=== PATIENT | male | born 1940 ===

== ENCOUNTER 2017-05-18 18:48 | Emergency (ER) | payer MEDICARE, MEDICAID ==
[2017-05-18 18:49] VITALS: BMI 23.3
[2017-05-18 18:53] VITALS: O2SAT 98
--- NOTE | 2017-05-18 19:41 | C.PDOC ---
History Of Present Illness 76 year old male, with a history of HTN and chronic renal insufficiency, presents to the ED with complaints of intermittent chest pain for four days and back pain for two weeks. 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 Patient had an appointment for today with assistant pastry chef Dr. Chaidez but came to the ED for evaluation instead. He began taking Tramadol for pain with relief initially for first three days and then stopped proving relief. Patient denies shortness of breath, weakness, or numbness. OLD RECS: HO CHRONIC RENAL INSUFF Time Seen by Provider: 05/18/17 19:17 Chief Complaint (Nursing): Back Pain History Per: Family History/Exam Limitations: no limitations Onset/Duration Of Symptoms: Days (intermittent chest pain for four days ), Persistent (back pain for two weeks ) Current Symptoms Are (Timing): Still Present Reports Recently: Treated By A Physician Recent travel outside of the [place]: No Additional History Per: Patient Past Medical History Reviewed: Historical Data, Nursing Documentation, Vital Signs Vital Signs: Last Vital Signs Temp 98.4 F 05/18/17 18:51 Pulse 60 05/18/17 18:51 Resp 20 05/18/17 18:51 BP 143/90 05/18/17 18:51 Pulse Ox 98 05/18/17 20:39 - Medical History PMH: Diabetes, HTN, Kidney Stones, Pancreatitis, Chronic Kidney Disease Family History: States: Unknown Family Hx - Social History Hx Tobacco Use: No Hx Alcohol Use: No Hx Substance Use: No Review Of Systems Constitutional: Positive for: Fever (subjective fever). Negative for: Chills Cardiovascular: Positive for: Chest Pain. Negative for: Palpitations Respiratory: Negative for: Cough, Shortness of Breath Gastrointestinal: Negative for: Nausea, Vomiting, Abdominal Pain, Diarrhea Musculoskeletal: Positive for: Back Pain Physical Exam - Physical Exam Appears: Non-toxic, No Acute Distress Skin: Warm, Dry Head: Atraumatic Eye(s): bilateral: Normal Inspection Oral Mucosa: Moist Neck: Supple Chest: Symmetrical, No Deformity Cardiovascular: Rhythm Regular, No Murmur Respiratory: Normal Breath Sounds, No Rales, No Rhonchi, No Wheezing Gastrointestinal/Abdominal: Soft, No Tenderness, No Distention, No Guarding, No Rebound Back: No CVA Tenderness, Paraspinal Tenderness (Bilateral paravertebral tenderness ), Other (Reproducible pain with flexion of the lower back ) Extremity: Normal ROM, No Tenderness, Capillary Refill (good capillary refill, less than two seconds ), No Swelling Neurological/Psych: Oriented x3, Normal Speech, Normal Cognition, Normal Motor, Normal Sensation, Other (Neuro grossly intact ) ED Course And Treatment - Laboratory Results Result Diagrams: 05/18/17 20:16 05/18/17 20:16 ECG: Interpreted By Me ECG Rhythm: Sinus Bradycardia ECG Interpretation: Normal Rate From EC O2 Sat by Pulse Oximetry: 98 (room air ) Pulse Ox Interpretation: Normal - Radiology CXR: Interpreted by Me, Viewed By Me CXR Interpretation: Yes: No Acute Disease, Other (Unchanged from 02/2016) Nexus Criteria: Negative - Other Rad Lumbar Spine X-Ray X-Ray: Interpreted by Me, Viewed By Me Interpretation: DJD, no fracture, no lytic leisons. Progress Note: Blood work, UA, CXR, and lumbar spine X-Ray were ordered. Patient was given Tylenol, Toradol, and Percocet. Progress - Re-Evaluation Re-evaluation Note: 05/18/17 20:38 FEELS BETTER. VSS. APPEARS COMFORTABLE NAD. PENDING LABS. 05/18/17 21:34 ASYMPT. VSS. AMBUL WO DIFF. FEELS BETTER WISHES DC HOME - Data Reviewed Data Reviewed: Lab, Diagnostic imaging, EKG, Old records Disposition Counseled Patient/Family Regarding: Studies Performed, Diagnosis, Need For Followup, Rx Given - Disposition Referrals: YOUR,PMD [Other] Disposition: HOME/ ROUTINE Disposition Time: 21:34 Condition: IMPROVED Prescriptions: Acetaminophen [Tylenol 325mg tab] 650 mg PO Q6 #30 tab Cyclobenzaprine [Flexeril] 5 mg PO TID #15 tab Ibuprofen [Motrin] 600 mg PO Q6 #30 tab Instructions: Acute Low Back Pain (ED), Chest Pain (ED) Forms: [facility] (Maltese) - Clinical Impression Clinical Impression: Low back pain, Chest pain - Scribe Statement The provider has reviewed the documentation as recorded by the Scribe Patience Walton All medical record entries made by the Scribe were at my direction and personally dictated by me. I have reviewed the chart and agree that the record accurately reflects my personal performance of the history, physical exam, medical decision making, and the department course for this patient. I have also personally directed, reviewed, and agree with the discharge instructions and disposition.
[2017-05-18] MEDS ORDERED: Oxycodone/Acetaminophen 5/325 mg Tab PO STA (19:42)
[2017-05-18] MEDS ORDERED: Oxycodone/Acetaminophen 5/325 mg Tab ONE (19:58)
[2017-05-18 20:20] LABS: BASO # 0.1 K/uL (0.0-0.2); BASO % 0.7 % (0.0-2.0); EOS # 0.1 K/uL (0.0-0.7); EOS % 1.4 % (0.0-4.0); HEMATOCRIT 37.4 % (35.0-51.0); LYMPH # 3.5 K/uL (1.0-4.3); LYMPH % 36.8 % (20.0-40.0); MEAN CELL VOLUME 98.7 fL (80.0-94.0); MEAN CORPUSCULAR HEMOGLOBIN 32.8 pg (27.0-31.0); MEAN CORPUSCULAR HGB CONC 33.3 g/dL (33.0-37.0); MEAN PLATELET VOLUME 8.5 fL (7.2-11.7); MONO # 1.2 K/uL (0.0-0.8); MONO % 12.7 % (0.0-10.0); NRBC % 0.1 % (0.0-2.0); RED CELL DISTRIBUTION WIDTH 14.7 % (11.5-14.5); WHITE BLOOD COUNT 9.6 K/uL (4.8-10.8)
[2017-05-18 20:29] LABS: POTASSIUM 3.8 mmol/L (3.6-5.2)
[2017-05-18] MEDS ORDERED: Sodium Chloride 0.9% 500 ML IV ONE (20:30)
[2017-05-18 20:33] LABS: CALCIUM 8.8 mg/dl (8.6-10.4)
[2017-05-18 20:45] LABS: TROPONIN I 0.041 ng/mL (0.00-0.120)
[2017-05-18 21:14] LABS: RBC URINE < 1 /hpf (0-3); TRANSITIONAL EPITHIAL < 1 /hpf (0-3); URINE BACTERIA RARE (<OCC); URINE BILIRUBIN NEGATIVE (NEGATIVE); URINE BLOOD NEGATIVE (NEGATIVE); URINE COLOR Yellow (YELLOW); URINE GLUCOSE (UA) NORMAL (Normal); URINE KETONE NEGATIVE (NEGATIVE); URINE LEUKOCYTE ESTERASE NEG Leu/uL (Negative); URINE PROTEIN 2+ mg/dL (NEGATIVE); URINE UROBILINOGEN NORMAL mg/dL (0.2-1.0); WBC URINE 4 /hpf (0-5)
[2017-05-18 22:01] VITALS: BP 121/77; PULSE 68; RESP 18; TEMP 98.2
--- NOTE | 2017-05-19 09:32 | RAD ---
HISTORY: chest pain COMPARISON: Comparison is made to the previous study dated 03/17/2016 TECHNIQUE: Chest PA and lateral FINDINGS: LUNGS: No significant interval change in the lungs noted since the previous exam. Small opacity at the peripheral right mid lung is again noted. Biapical pleural thickening or lung scarring are also again seen. PLEURA: No significant pleural effusion identified. No pneumothorax apparent. CARDIOVASCULAR: Normal. OSSEOUS STRUCTURES: No significant abnormalities. VISUALIZED UPPER ABDOMEN: Normal. OTHER FINDINGS: None. IMPRESSION: No significant interval change since the previous exam.
--- NOTE | 2017-05-19 09:37 | RAD ---
PROCEDURE: Radiographs of the Lumbar Spine. HISTORY: LOWER BACK PAIN COMPARISON: No prior. FINDINGS: BONES: There is mild decreased height of T12 vertebral body. Advanced endplate degenerative changes. Large anterior and posterior osteophyte lipping are noted DISC SPACES: There are multilevel moderate to severe disc space narrowing noted more prominent at L1-L2, L2-L3 and L5-S1 OTHER FINDINGS: None. IMPRESSION: Possible mild decreased height of T12. Advanced degenerative changes at the lumbar spine as described above.
--- NOTE | 2017-05-20 08:00 | CARD ---
APPROVED REPORT EKG Measurement Heart [id number] <Conclusion> Sinus bradycardia with sinus arrhythmia Otherwise normal ECG
== END 2017-05-18 22:00 | disposition home or self-care (01) ==
LOC: C.ER 18:48
DX: R07.9 Chest pain, unspecified (principal); M54.5 Low back pain
CPT/HCPCS: 71020; 72100; 80048; 81001; 84484; 85025; 93005; 96374; 96375; 99283; J1885; J2405

== ENCOUNTER 2017-06-05 18:06 | Observation (INO) | payer MEDICARE, MEDICAID ==
[2017-06-05 18:06] VITALS: BMI 23.3
[2017-06-05 20:50] LABS: BASO % 0.4 % (0.0-2.0); HEMATOCRIT 35.2 % (35.0-51.0); LYMPH # 1.9 K/uL (1.0-4.3); LYMPH % 17.5 % (20.0-40.0); MEAN CELL VOLUME 96.6 fL (80.0-94.0); MEAN CORPUSCULAR HEMOGLOBIN 32.9 pg (27.0-31.0); MEAN CORPUSCULAR HGB CONC 34.1 g/dL (33.0-37.0); MONO # 0.9 K/uL (0.0-0.8); MONO % 8.4 % (0.0-10.0); NRBC % 0.1 % (0.0-2.0); WHITE BLOOD COUNT 10.9 K/uL (4.8-10.8)
[2017-06-05 21:04] LABS: POTASSIUM 3.1 mmol/L (3.6-5.2)
[2017-06-05 21:06] LABS: BILIRUBIN,TOTAL 0.5 mg/dL (0.2-1.3); TOTAL PROTEIN 6.9 g/dL (6.3-8.3)
--- NOTE | 2017-06-05 21:13 | C.PDOC ---
History Of Present Illness 76 year old male with a Hx of CA and diabetes who presents to the ER with a complaint of occasional sharp, 10/10 chest pressure/pain left sided chest pain with radiation to L shoulder and arm with "heaviness" and purple discoloration of his lips, severe SOB and weakness in the legs causing multiple near-falls to the ground for the past week. Was seen at another outside hospital and referred for outpatient Stress Test which has not yet been done. Also patient reports associated weakness and numbness to the fingers bilaterally ; denies nausea, or vomiting. Time Seen by Provider: 06/05/17 19:33 Chief Complaint (Nursing): Chest Pain History Per: Patient History/Exam Limitations: no limitations Onset/Duration Of Symptoms: Hrs Current Symptoms Are (Timing): Still Present Quality: Sharp Associated Symptoms: Other (Numbness/weakness of fingers). denies: Nausea, Dyspnea, Diaphoresis, Syncope Modifying Factors: None Exacerbating Factors: None Alleviating Factors: None Recent travel outside of the [place]: No Past Medical History Reviewed: Historical Data, Nursing Documentation, Vital Signs Vital Signs: Last Vital Signs Temp 97.7 F 06/05/17 18:11 Pulse 67 06/05/17 19:56 Resp 20 06/05/17 18:11 BP 176/85 H 06/05/17 19:56 Pulse Ox 99 06/05/17 22:19 - Medical History PMH: Diabetes, HTN, Kidney Stones, Pancreatitis, Chronic Kidney Disease Surgical History: No Surg Hx Family History: States: Unknown Family Hx - Social History Hx Tobacco Use: No Hx Alcohol Use: No Hx Substance Use: No Review Of Systems Constitutional: Negative for: Fever, Chills Cardiovascular: Positive for: Chest Pain. Negative for: Palpitations Respiratory: Negative for: Shortness of Breath Gastrointestinal: Negative for: Nausea, Vomiting Neurological: Positive for: Other (Weakness/numbness of fingers) Physical Exam - Physical Exam Appears: Non-toxic Skin: Normal Color, Warm, Dry Head: Atraumatic, Normacephalic Eye(s): bilateral: Normal Inspection, EOMI Oral Mucosa: Moist Neck: Normal, Supple Chest: Symmetrical, No Tenderness Cardiovascular: Rhythm Regular, No Murmur Respiratory: Normal Breath Sounds, No Rales, No Rhonchi, No Wheezing Gastrointestinal/Abdominal: Soft, No Tenderness Extremity: Normal ROM (x4) Neurological/Psych: Oriented x3, Normal Speech, Normal Cognition, Normal Motor, Normal Sensation ED Course And Treatment - Laboratory Results Result Diagrams: 06/05/17 20:37 06/05/17 20:37 Lab Interpretation: Normal (baseline labs, mild leukocytosis and CRI no sig change, mild hypokalemia, neg trop.) ECG: Interpreted By Me ECG Rhythm: Sinus Rhythm ECG Interpretation: Normal Rate From EC O2 Sat by Pulse Oximetry: 99 (Room air) Pulse Ox Interpretation: Normal - Radiology CXR: Interpreted by Me CXR Interpretation: Yes: No Acute Disease Progress Note: Blood work and CXR ordered. Aspirin and motrin administered. Lovenox and NTP applied Reevaluation Time: 23:07 Reassessment Condition: Unchanged (remains asymptomatic) - Physician Consult Information Outcome Of Conversation: 2300: d/w Dr. Mcginnis- PMD- ok to Tele obs. Medical Decision Making Medical Decision Making: high probability of unstable angina considering symptoms very descriptive of angina and pt's extensive cardiac h/o CA x 3. w/u neg and trop neg today. Chest discomfort does not have a digitally or positionally reproducable component. Disposition Doctor Will See Patient In The: Hospital Counseled Patient/Family Regarding: Studies Performed, Diagnosis - Disposition Disposition: HOSPITALIZED Disposition Time: 23:09 Condition: GOOD Forms: [facility] (Indonesian) - Clinical Impression Clinical Impression: Precordial pain - Scribe Statement The provider has reviewed the documentation as recorded by the Scribe Eamon Harper All medical record entries made by the Scribe were at my direction and personally dictated by me. I have reviewed the chart and agree that the record accurately reflects my personal performance of the history, physical exam, medical decision making, and the department course for this patient. I have also personally directed, reviewed, and agree with the discharge instructions and disposition.
--- NOTE | 2017-06-05 21:44 | C.PDOC ---
Time Seen by Provider: 06/05/17 19:33 Chief Complaint (Nursing): Chest Pain Past Medical History Vital Signs: Last Vital Signs Temp 97.7 F 06/05/17 18:11 Pulse 67 06/05/17 19:56 Resp 20 06/05/17 18:11 BP 176/85 H 06/05/17 19:56 Pulse Ox 99 06/05/17 18:11 - Medical History PMH: Diabetes, HTN, Kidney Stones, Pancreatitis, Chronic Kidney Disease Family History: States: Unknown Family Hx - Social History Hx Tobacco Use: No Hx Alcohol Use: No Hx Substance Use: No ED Course And Treatment O2 Sat by Pulse Oximetry: 99 Disposition - Disposition Forms: [employer] (Portuguese)
[2017-06-05] MEDS ORDERED: Potassium Chloride 10 mEq ER Tab PO STA (21:54)
[2017-06-05] MEDS ORDERED: Potassium Chloride 20 mEq ER Tab PO ONE (22:04)
[2017-06-05] MEDS ORDERED: Nitroglycerin 2% Ointment Foilpak UD TOP STA (22:19)
[2017-06-05] MEDS ORDERED: Enoxaparin 40 mg Syringe SC STA ×2 (22:21→22:28)
[2017-06-05] MEDS ORDERED: Nitroglycerin 2% Ointment Foilpak UD TOP ONE (22:28)
[2017-06-05] MEDS ORDERED: Enoxaparin 60 mg Syringe SC STA (22:29)
[2017-06-05] MEDS ORDERED: Enoxaparin 60 mg Syringe ONE (22:35)
[2017-06-06 01:05] VITALS: RESP 20
[2017-06-06] MEDS: (Novolin R) Insulin Human Regular 100 units/ml vial SC SCH ×4 (08:13→21:44)
--- NOTE | 2017-06-06 09:19 | RAD ---
HISTORY: Admission film COMPARISON: 05/18/2017 FINDINGS: LUNGS: Mild venous congestion. PLEURA: No significant pleural effusion identified, no pneumothorax apparent. CARDIOVASCULAR: Normal. OSSEOUS STRUCTURES: No significant abnormalities. VISUALIZED UPPER ABDOMEN: Normal. OTHER FINDINGS: None. IMPRESSION: Mild venous congestion.
[2017-06-06 09:47] LABS: POTASSIUM 3.2 mmol/L (3.6-5.2)
[2017-06-06 09:51] LABS: CALCIUM 8.9 mg/dl (8.6-10.4); MAGNESIUM 1.8 mg/dL (1.6-2.3); PHOSPHOROUS 3.4 mg/dL (2.5-4.5)
[2017-06-06] MEDS: Metoprolol Succinate 50 mg XL Tab PO SCH ×2 (09:55→17:55)
[2017-06-06] MEDS: Levothyroxine 88 MCG TAB PO SCH (09:55)
[2017-06-06] MEDS ORDERED: Potassium Chloride 20 mEq ER Tab PO ONE (13:30)
--- NOTE | 2017-06-06 14:28 | CP.PCM.CON ---
History of Present Illness - History of Present Illness History of Present Illness: The pt is a76 year old man with diabetes, see Dr Omer Wolf, who had chest pain,at rest yesterday, well localized area, off and on for two hours. he came to and pain gradually resolved. CXR shows mild venous congestion as per report. ECG by me is normal. Echo reveals low normal LV EF, mild AI and diastology is not c/w elevated LA pressure. TNi is negative. pt had hadn numbness, fingers, now resolved. Review of Systems - Review of Systems All systems: reviewed and no additional remarkable complaints except (as above.) Past Patient History - Past Medical History & Family History Past Medical History?: Yes - Past Social History Smoking Status: Never Smoked - CARDIAC Hx Hypertension: Yes - PULMONARY Hx Respiratory Disorders: No - NEUROLOGICAL Hx Neurological Disorder: No - HEENT Hx HEENT Problems: No - RENAL Hx Chronic Kidney Disease: Yes Hx Kidney Stones: Yes - ENDOCRINE/METABOLIC Hx Endocrine Disorders: No - HEMATOLOGICAL/ONCOLOGICAL Hx Blood Disorders: No - INTEGUMENTARY Hx Dermatological Problems: No - MUSCULOSKELETAL/RHEUMATOLOGICAL Hx Musculoskeletal Disorders: No Hx Falls: No - GASTROINTESTINAL Hx Pancreatitis: Yes - GENITOURINARY/GYNECOLOGICAL Hx Genitourinary Disorders: No - PSYCHIATRIC Hx Psychophysiologic Disorder: No Hx Substance Use: No - SURGICAL HISTORY Hx Surgeries: Yes Other/Comment: Colostomy, Whipple's - ANESTHESIA Hx Anesthesia: Yes Hx Anesthesia Reactions: No Hx Malignant Hyperthermia: No Has any member of the family had a problem w/ anesthesia?: No Meds Allergies/Adverse Reactions: Allergies Allergy/AdvReac Type Severity Reaction Status Date / Time No Known Allergies Allergy Verified 06/05/17 18:14 - Medications Medications: Current Medications Aspirin (Aspirin Chewable) 81 mg PO DAILY [facility] Last Admin: 06/06/17 09:54 Dose: 81 mg Clonazepam (Klonopin) 1 mg PO Q6H PRN PRN Reason: Anxiety Famotidine (Pepcid) 20 mg PO DAILY [facility] Last Admin: 06/06/17 09:55 Dose: 20 mg Heparin Sodium (Porcine) (Heparin) 5,000 units SC Q12 [facility] Last Admin: 06/06/17 09:54 Dose: 5,000 units Insulin Human Regular (Novolin R) 0 unit SC ACHS [facility] PRN Reason: Protocol Last Admin: 06/06/17 12:37 Dose: Not Given Levothyroxine Sodium (Synthroid) 88 mcg PO DAILY@0630 [facility] Last Admin: 06/06/17 09:55 Dose: 88 mcg Metoprolol Succinate (Toprol Xl) 50 mg PO BID [facility] Last Admin: 06/06/17 09:55 Dose: 50 mg Nateglinide (Starlix) 60 mg PO DAILY [facility] Last Admin: 06/06/17 09:55 Dose: 60 mg Pneumococcal Polyvalent Vaccine (Pneumovax 23 Vaccine) 0.5 ml IM .ONCE ONE Stop: 06/08/17 10:01 Rosuvastatin Calcium (Crestor) 10 mg PO [facility] Zolpidem Tartrate (Ambien) 5 mg PO [facility] Physical Exam - Constitutional Appears: Well - Head Exam Head Exam: ATRAUMATIC - Eye Exam Eye Exam: EOMI Pupil Exam: NORMAL ACCOMODATION - ENT Exam ENT Exam: Mucous Membranes Moist - Neck Exam Neck exam: Positive for: Normal Inspection - Respiratory Exam Respiratory Exam: Clear to Auscultation Bilateral - Cardiovascular Exam Cardiovascular Exam: REGULAR RHYTHM, Systolic Murmur - GI/Abdominal Exam GI & Abdominal Exam: Normal Bowel Sounds - Exam External exam: NORMAL EXTERNAL EXAM - Extremities Exam Extremities exam: Positive for: normal inspection - Back Exam Back exam: NORMAL INSPECTION - Neurological Exam Neurological exam: Alert, CN II-XII Intact, Oriented x3 - Psychiatric Exam Psychiatric exam: Normal Affect, Normal Mood - Skin Skin Exam: Normal Color Results - Vital Signs Recent Vital Signs: Last Vital Signs Temp 97.7 F 06/06/17 08:03 Pulse 59 L 06/06/17 08:03 Resp 20 06/06/17 08:03 BP 137/61 06/06/17 08:03 Pulse Ox 97 06/06/17 08:03 - Labs Result Diagrams: 06/05/17 20:37 06/06/17 09:45 Labs: Laboratory Results - last 24 hr 06/05/17 06/05/17 06/06/17 20:37 20:37 06:39 WBC 10.9 H RBC 3.64 L Hgb 12.0 Hct 35.2 MCV 96.6 H D MCH 32.9 H MCHC 34.1 RDW 14.0 Plt Count 198 MPV 9.0 Neut % (Auto) 73.7 Lymph % (Auto) 17.5 L [place] % (Auto) 8.4 Eos % (Auto) 0.0 Baso % (Auto) 0.4 Neut # 8.0 H Lymph # 1.9 [place] # 0.9 H Eos # 0.0 Baso # 0.0 Sodium 142 Potassium 3.1 L Chloride 108 H Carbon Dioxide 24 Anion Gap 13 BUN 30 H Creatinine 1.7 H Est GFR ( Amer) 48 Est GFR (Non-Af Amer) 39 POC Glucose (mg/dL) 108 Random Glucose 112 H Calcium 9.0 Phosphorus Magnesium Total Bilirubin 0.5 AST 26 ALT 38 Alkaline Phosphatase 108 Total Creatine Kinase 27 L CK-MB (Mass) 0.81 Troponin I, Quant 0.0760 Total Protein 6.9 Albumin 3.4 L Globulin 3.5 Albumin/Globulin Ratio 1.0 Triglycerides Cholesterol LDL Cholesterol Direct HDL Cholesterol 06/06/17 06/06/17 06/06/17 09:45 11:47 12:21 WBC RBC Hgb Hct MCV MCH MCHC RDW Plt Count MPV Neut % (Auto) Lymph % (Auto) [place] % (Auto) Eos % (Auto) Baso % (Auto) Neut # Lymph # [place] # Eos # Baso # Sodium 142 Potassium 3.2 L Chloride 110 H Carbon Dioxide 24 Anion Gap 12 BUN 34 H Creatinine 1.7 H Est GFR ( Amer) 48 Est GFR (Non-Af Amer) 39 POC Glucose (mg/dL) 268 H Random Glucose 104 Calcium 8.9 Phosphorus 3.4 Magnesium 1.8 Total Bilirubin AST ALT Alkaline Phosphatase Total Creatine Kinase 26 L 31 L CK-MB (Mass) 0.71 0.80 Troponin I, Quant 0.1050 0.0880 Total Protein Albumin Globulin Albumin/Globulin Ratio Triglycerides 125 D Cholesterol 148 LDL Cholesterol Direct 74 HDL Cholesterol 56 - EKG Data EKG Interpreted by: Myself (nromal) Assessment & Plan - Assessment and Plan (Free Text) Assessment: 1. 76 year old man with DM, mild CKD. Atypcal chest pain, at rest, small area. Initial work up by tni, echo and ecg : normal. However as pt is a diabetic, high risk of CD, a nuclear stress is ordered for the AM.
--- NOTE | 2017-06-06 14:48 | CARD ---
APPROVED REPORT EKG Measurement Heart [id number] ME 140P35 [id number] <Conclusion> Normal sinus rhythm Normal ECG
--- NOTE | 2017-06-06 14:52 | CP.PCM.HP ---
History of Present Illness - History of Present Illness History of Present Illness: pT WAS BROUGHT TO THE EMERGENCY ROOM WITH A COMPLAINT OF CHEST PAIN, ACCording to the ER doctor he had been in the hospital recently with similar complaints however no stress test was done. Pt states he was cooking when he started to feel chst pain on and off, it lasted for few minutes so he decided to go to ER> PT states last stress test was a year ago. He was schedulled for a repeat this year, but lost the appointment. no diaphoresis no diarrhea no n/v PMH: Chronic kidney disease. 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 Familial Polyposis Htn Diabetes II CAD diabetic polyneuropathy Hypothyroidism Ho Pancreatitis PSH: Whipple Family history: familial polyposis Social TOb No ETHoh NO Meds; Clonazepam 1gm po bid Zolpidem 10mg po qhs TRadjenta 5mg po qd Omeprazole 20-mg po qd Uloric 40mg po qd creon 24, 000/17728 4 insulation helper tid levothyroxine 112mcg po qd calcitriol .25mg po qd All: NKDA Present on Admission - Present on Admission Any Indicators Present on Admission: No History of DVT/PE: No History of Uncontrolled Diabetes: No Urinary Catheter: No Decubitus Ulcer Present: No Review of Systems - Constitutional Constitutional: As Per HPI. absent: Frequent Falls, Night Sweats - Respiratory Respiratory: absent: Cough, Hemoptysis - Gastrointestinal Gastrointestinal: absent: Abdominal Pain, Nausea, Vomiting - Musculoskeletal Musculoskeletal: Back Pain Past Patient History - Past Medical History & Family History Past Medical History?: Yes - Past Social History Smoking Status: Never Smoked - CARDIAC Hx Hypertension: Yes - PULMONARY Hx Respiratory Disorders: No - NEUROLOGICAL Hx Neurological Disorder: No - HEENT Hx HEENT Problems: No - RENAL Hx Chronic Kidney Disease: Yes Hx Kidney Stones: Yes - ENDOCRINE/METABOLIC Hx Endocrine Disorders: No - HEMATOLOGICAL/ONCOLOGICAL Hx Blood Disorders: No - INTEGUMENTARY Hx Dermatological Problems: No - MUSCULOSKELETAL/RHEUMATOLOGICAL Hx Musculoskeletal Disorders: No Hx Falls: No - GASTROINTESTINAL Hx Pancreatitis: Yes - GENITOURINARY/GYNECOLOGICAL Hx Genitourinary Disorders: No - PSYCHIATRIC Hx Psychophysiologic Disorder: No Hx Substance Use: No - SURGICAL HISTORY Hx Surgeries: Yes Other/Comment: Colostomy, Whipple's - ANESTHESIA Hx Anesthesia: Yes Hx Anesthesia Reactions: No Hx Malignant Hyperthermia: No Has any member of the family had a problem w/ anesthesia?: No Meds Allergies/Adverse Reactions: Allergies Allergy/AdvReac Type Severity Reaction Status Date / Time No Known Allergies Allergy Verified 06/05/17 18:14 Physical Exam - Constitutional Appears: Non-toxic, No Acute Distress - Eye Exam Eye Exam: EOMI - ENT Exam ENT Exam: Mucous Membranes Moist - Neck Exam Neck exam: Positive for: Full Rom - Respiratory Exam Respiratory Exam: NORMAL BREATHING PATTERN. absent: Accessory Muscle Use, Chest Wall Tenderness, Wheezes - Cardiovascular Exam Cardiovascular Exam: REGULAR RHYTHM, RRR, +S1, +S2. absent: JVD, Rubs, +S4 - GI/Abdominal Exam GI & Abdominal Exam: Normal Bowel Sounds. absent: Tenderness - Extremities Exam Extremities exam: Negative for: joint swelling, tenderness Results - Vital Signs Recent Vital Signs: Last Vital Signs Temp 97.7 F 06/06/17 08:03 Pulse 59 L 06/06/17 08:03 Resp 20 06/06/17 08:03 BP 137/61 06/06/17 08:03 Pulse Ox 97 06/06/17 08:03 - Labs Result Diagrams: 06/05/17 20:37 06/06/17 15:07 Labs: Laboratory Results - last 24 hr 06/05/17 06/05/17 06/06/17 20:37 20:37 06:39 WBC 10.9 H RBC 3.64 L Hgb 12.0 Hct 35.2 MCV 96.6 H D MCH 32.9 H MCHC 34.1 RDW 14.0 Plt Count 198 MPV 9.0 Neut % (Auto) 73.7 Lymph % (Auto) 17.5 L [place] % (Auto) 8.4 Eos % (Auto) 0.0 Baso % (Auto) 0.4 Neut # 8.0 H Lymph # 1.9 [place] # 0.9 H Eos # 0.0 Baso # 0.0 Sodium 142 Potassium 3.1 L Chloride 108 H Carbon Dioxide 24 Anion Gap 13 BUN 30 H Creatinine 1.7 H Est GFR ( Amer) 48 Est GFR (Non-Af Amer) 39 POC Glucose (mg/dL) 108 Random Glucose 112 H Calcium 9.0 Phosphorus Magnesium Total Bilirubin 0.5 AST 26 ALT 38 Alkaline Phosphatase 108 Total Creatine Kinase 27 L CK-MB (Mass) 0.81 Troponin I, Quant 0.0760 Total Protein 6.9 Albumin 3.4 L Globulin 3.5 Albumin/Globulin Ratio 1.0 Triglycerides Cholesterol LDL Cholesterol Direct HDL Cholesterol 06/06/17 06/06/17 06/06/17 09:45 11:47 12:21 WBC RBC Hgb Hct MCV MCH MCHC RDW Plt Count MPV Neut % (Auto) Lymph % (Auto) [place] % (Auto) Eos % (Auto) Baso % (Auto) Neut # Lymph # [place] # Eos # Baso # Sodium 142 Potassium 3.2 L Chloride 110 H Carbon Dioxide 24 Anion Gap 12 BUN 34 H Creatinine 1.7 H Est GFR ( Amer) 48 Est GFR (Non-Af Amer) 39 POC Glucose (mg/dL) 268 H Random Glucose 104 Calcium 8.9 Phosphorus 3.4 Magnesium 1.8 Total Bilirubin AST ALT Alkaline Phosphatase Total Creatine Kinase 26 L 31 L CK-MB (Mass) 0.71 0.80 Troponin I, Quant 0.1050 0.0880 Total Protein Albumin Globulin Albumin/Globulin Ratio Triglycerides 125 D Cholesterol 148 LDL Cholesterol Direct 74 HDL Cholesterol 56 Assessment & Plan - Assessment and Plan (Free Text) Assessment: Chest pain given pt is high risk due to diabetes admit cardiology consult will need stress test FER o2 asa 2. Diabets cont meds 3. pancreatic insuff cont meds 4. renal insu base line creat is 2 low k continue to replace 5. dvt and gi prophylaxis 6. Anxiety; cont benzos
[2017-06-06] MEDS: LIPASE/PROTEASE/AMYLASE 4,200 U ECC PO SCH (17:56)
--- NOTE | 2017-06-06 20:04 | CARD ---
APPROVED REPORT EXAM: Two-dimensional and M-mode echocardiogram with Doppler and color Doppler. 2D DIMENSIONS IVSd1.1 (0.7-1.1cm)LVDd4.6 (3.9-5.9cm) PWd1.0 (0.7-1.1cm)LVDs3.1 (2.5-4.0cm) FS (%) 32.5 %LVEF (%)60.8 (>50%) M-Mode DIMENSIONS Left Atrium (MM)3.28 (2.5-4.0cm)Aortic Root3.95 (2.2-3.7cm) Aortic Cusp Exc.1.99 (1.5-2.0cm) Aortic Valve AI P 1/2 [id number] Mitral Valve MV E Vccyvsxj02.5cm/sMV A Vmaqqfie37.6cm/sE/A ratio0.7 TDI E/Lateral E'0.0E/Medial E'0.0 Tricuspid Valve TR Peak [id number]/sTR Peak Gr.[id number] LEFT VENTRICLE The left ventricle is normal size. There is normal left ventricular wall thickness. The left ventricular function is normal. The left ventricular ejection fraction is within the normal range. About 55%. No regional wall motion abnormalities noted. Transmitral Doppler flow pattern is Grade I-abnormal relaxation pattern. No left ventricle thrombus noted on this study. There is no ventricular septal defect visualized. There is no left ventricular aneurysm. There is no mass noted in the left ventricle. RIGHT VENTRICLE The right ventricle is normal size. There is normal right ventricular wall thickness. The right ventricular systolic function is normal. ATRIA The left atrium size is normal. The right atrium size is normal. The interatrial septum is intact with no evidence for an atrial septal defect. AORTIC VALVE The aortic valve is normal in structure and function. Mild aortic regurgitation is present. There is no aortic valvular stenosis. There is no aortic valvular vegetation. MITRAL VALVE The mitral valve is normal in structure and function. There is no evidence of mitral valve prolapse. There is no mitral valve stenosis. There is no mitral valve regurgitation noted. TRICUSPID VALVE The tricuspid valve is normal in structure and function. There is no tricuspid valve regurgitation noted. There is no tricuspid valve prolapse or vegetation. There is no tricuspid valve stenosis. PULMONIC VALVE The pulmonary valve is normal in structure and function. There is no pulmonic valvular regurgitation. There is no pulmonic valvular stenosis. GREAT VESSELS The aortic root is normal in size. The ascending aorta is mildly dilated at 3.8 cm diameter. The pulmonary artery is normal. The IVC is normal in size and collapses >50% with inspiration. PERICARDIAL EFFUSION The pericardium appears normal. There is no pleural effusion. <Conclusion> Mild aortic regurgitation is present. Transmitral Doppler flow pattern is Grade I-abnormal relaxation pattern. The left ventricular function is normal. The left ventricular ejection fraction is within the normal range. About 55%. The ascending aorta is mildly dilated at 3.8 cm diameter.
[2017-06-07] MEDS: Levothyroxine 88 MCG TAB PO SCH ×2 (05:30→07:29)
[2017-06-07] MEDS: (Novolin R) Insulin Human Regular 100 units/ml vial SC SCH ×3 (08:39→17:17)
[2017-06-07] MEDS: LIPASE/PROTEASE/AMYLASE 4,200 U ECC PO SCH ×3 (11:44→17:18)
[2017-06-07] MEDS: Metoprolol Succinate 50 mg XL Tab PO SCH ×2 (11:49→17:18)
--- NOTE | 2017-06-07 14:30 | CARD ---
APPROVED REPORT Protocol: REFUGIO Test Type: NUCLEAR STRESS Test Indications: CP Medications: LIST Target HR: 143 bpm Resting ECG: normal Resting Heart Rate: 102 bpm Resting Blood Pressure: 150/80mmHg submaximum (85%): 122 bpm TEST SUMMARY [id number]:02..1.093/.0. PRETESTWARM-UP08:[id number]/80.0. EXERCISESTAGE 103:[id number]/80.1. EXERCISESTAGE 203:[id number]/80.1. EXERCISESTAGE 301:[id number]/80.6. MANUALSTAGE 204:[id number]/80.0. POST EXERCISE Reason for Termination: Fatigue Target HR: Yes Max HR: 164 bpm 120% of Maximum Predicted HR: 143 bpm Exercise duration: 07:00 min:sec, 3 Stage Exercise capacity: 10.1METs Max Blood Pressure: 190/80mmHg Blood Pressure response to exercise: normal resting BP - appropriate response Heart Rate response to exercise: appropriate Chest Pain: No, none Angina index: 0 Arrhythmia: Yes, At peak and in earkly recovery, frequent APBs, and short SVT ST Change: No, none Deviation: 0 mm EXAM: Myocardial Perfusion REST/STRESS Imaging Protocol The imaging protocol used to acquire images was Rest Tc-99m/stress Tc-99m 1 day Rest Spect myocardial perfusion imaging was performed in supine position 45 minutes following the injection of 13.2 mCi of Tc-99 Myoview. Gated Stress Spect was performed 45 minutes after intravenous 32.7 mCi Tc-99 Myoview injection. The images were gated to evaluate regional wall motion and calculate ventricular ejection fraction.Images were reconstructed using backfilter projection method in short horizontal and verticle long axis. Spect slices were generated. RESTING DATA EDV94.23knQP9.00L/min ESV32.00mlMyocardial Tlaz205.00g Av. Heart Rate64.00bpm EF66.00% STRESS DATA FIQ936.37agYM4.80L/min ESV36.00mlMyocardial Ksby474.00g EF64.00% Regional WT score at stress:0.00 Regional WM score at stress:0.00 Summed WT score at stress:8.00 Av. Heart Rate75.00bpmSummed WM score at stress:1.00 LV Perf. Quant 17 Seg. SSS1.00 17 Seg. SRS4.00 17 Seg. SDS0.00 Stress Defect Extent (% LAD)0.00Rest Defect Extent (% LAD)4.40Rev. Defect Extent (% LAD)0.00 Stress Defect Extent (% LCX)11.30Rest Defect Extent (% LCX)13.80Rev. Defect Extent (% LCX)0.00 Stress Defect Extent (% RCA)0.00Rest Defect Extent (% RCA)0.00Rev. Defect Extent (% RCA)0.00 Stress Defect Extent (% FAIZA)2.60Rest Defect Extent (% FAIZA)7.60Rev. Defect Extent (% FAIZA)0.00 Conclusion 1. The patient exercised on a refugio protolc into stage 3. No ST segment changes were noted. No angina. THe ecg fincings were negative for ischemia. Frequent short rins of svt were noted. 2. Good technical quality of nuclear images. 3. Both post stress and resting perfusion were normal. 4. THe LV EF was 61%. 5. Impression: Noral nuclear stress test at a good exercise level.
--- NOTE | 2017-06-07 14:36 | CP.PCM.PN ---
Subjective - Date & Time of Evaluation Date of Evaluation: 06/07/17 Time of Evaluation: 14:33 - Subjective Subjective: Pt feels well, no more chest pain. Nuclear stress test was normal. BP was mildly elevated. Objective - Vital Signs/Intake and Output Vital Signs (last 24 hours): Temp Pulse Resp BP Pulse Ox 98 F 82 20 145/71 97 06/07/17 07:00 06/07/17 14:29 06/07/17 07:00 06/07/17 07:00 06/07/17 07:00 Intake and Output: 06/07/17 06/07/17 06:59 18:59 Intake Total 500 Balance 500 - Medications Medications: Current Medications Amlodipine Besylate (Norvasc) 10 mg PO DAILY [facility] Last Admin: 06/07/17 11:44 Dose: 10 mg Aspirin (Aspirin Chewable) 81 mg PO DAILY [facility] Last Admin: 06/07/17 11:43 Dose: 81 mg Clonazepam (Klonopin) 1 mg PO Q6H PRN PRN Reason: Anxiety Last Admin: 06/07/17 01:23 Dose: 1 mg Famotidine (Pepcid) 20 mg PO DAILY [facility] Last Admin: 06/07/17 11:44 Dose: 20 mg Heparin Sodium (Porcine) (Heparin) 5,000 units SC Q12 [facility] Last Admin: 06/07/17 11:45 Dose: 5,000 units Hydralazine HCl (Apresoline) 50 mg PO BID [facility] Insulin Human Regular (Novolin R) 0 unit SC ACHS [facility] PRN Reason: Protocol Last Admin: 06/07/17 12:10 Dose: Not Given Levothyroxine Sodium (Synthroid) 88 mcg PO DAILY@0630 [facility] Last Admin: 06/07/17 07:29 Dose: Not Given Metoprolol Succinate (Toprol Xl) 50 mg PO BID [facility] Last Admin: 06/07/17 11:49 Dose: 50 mg Nateglinide (Starlix) 60 mg PO DAILY [facility] Last Admin: 06/07/17 11:43 Dose: 60 mg Pneumococcal Polyvalent Vaccine (Pneumovax 23 Vaccine) 0.5 ml IM .ONCE ONE Stop: 06/08/17 10:01 Rosuvastatin Calcium (Crestor) 10 mg PO HS [facility] Last Admin: 06/06/17 21:23 Dose: 10 mg Zolpidem Tartrate (Ambien) 5 mg PO HS [facility] Last Admin: 06/06/17 21:23 Dose: 5 mg - Labs Labs: 06/05/17 20:37 06/06/17 15:07 - Constitutional Appears: Well - Head Exam Head Exam: NORMAL INSPECTION - Eye Exam Eye Exam: Normal appearance - ENT Exam ENT Exam: Mucous Membranes Moist - Neck Exam Neck Exam: Full ROM - Respiratory Exam Respiratory Exam: Clear to Ausculation Bilateral - Cardiovascular Exam Cardiovascular Exam: REGULAR RHYTHM - GI/Abdominal Exam GI & Abdominal Exam: Normal Bowel Sounds - Exam External exam: NORMAL EXTERNAL EXAM - Extremities Exam Extremities Exam: Full ROM - Back Exam Back Exam: NORMAL INSPECTION - Neurological Exam Neurological Exam: Alert, Awake, Normal Gait - Psychiatric Exam Psychiatric exam: Normal Affect - Skin Skin Exam: Dry Assessment and Plan - Assessment and Plan (Free Text) Assessment: The patient's chest pain was atypical and nuclear stress test was normal. Risk factor management is advised. For HTN, as cr is mildly elevated, hydralazine 50 bid is ordered.
[2017-06-07 15:21] VITALS: BP 138/74; TEMP 97.3; O2SAT 96
--- NOTE | 2017-06-07 15:35 | CP.PCM.DIS ---
Provider - Provider Date of Admission: 06/05/17 22:31 Attending physician: Ariane Mcginnis MD Time Spent in preparation of Discharge (in minutes): 30 Diagnosis - Discharge Diagnosis (1) Precordial pain Status: Resolved Hospital Course - Lab Results Lab Results: Most Recent Lab Values WBC 10.9 K/uL (4.8-10.8) H 06/05/17 20:37 RBC 3.64 Mil/uL (4.40-5.90) L 06/05/17 20:37 Hgb 12.0 g/dL (12.0-18.0) 06/05/17 20:37 Hct 35.2 % (35.0-51.0) 06/05/17 20:37 MCV 96.6 fL (80.0-94.0) H D 06/05/17 20:37 MCH 32.9 pg (27.0-31.0) H 06/05/17 20:37 MCHC 34.1 g/dL (33.0-37.0) 06/05/17 20:37 RDW 14.0 % (11.5-14.5) 06/05/17 20:37 Plt Count 198 K/uL (130-400) 06/05/17 20:37 MPV 9.0 fL (7.2-11.7) 06/05/17 20:37 Neut % (Auto) 73.7 % (50.0-75.0) 06/05/17 20:37 Lymph % (Auto) 17.5 % (20.0-40.0) L 06/05/17 20:37 [place] % (Auto) 8.4 % (0.0-10.0) 06/05/17 20:37 Eos % (Auto) 0.0 % (0.0-4.0) 06/05/17 20:37 Baso % (Auto) 0.4 % (0.0-2.0) 06/05/17 20:37 Neut # 8.0 K/uL (1.8-7.0) H 06/05/17 20:37 Lymph # 1.9 K/uL (1.0-4.3) 06/05/17 20:37 [place] # 0.9 K/uL (0.0-0.8) H 06/05/17 20:37 Eos # 0.0 K/uL (0.0-0.7) 06/05/17 20:37 Baso # 0.0 K/uL (0.0-0.2) 06/05/17 20:37 Sodium 142 mmol/L (132-148) 06/06/17 09:45 Potassium 4.4 mmol/L (3.6-5.2) 06/06/17 15:07 Chloride 110 mmol/L (98-107) H 06/06/17 09:45 Carbon Dioxide 24 mmol/L (22-30) 06/06/17 09:45 Anion Gap 12 (10-20) 06/06/17 09:45 BUN 34 mg/dL (9-20) H 06/06/17 09:45 Creatinine 1.7 MG/DL (0.8-1.5) H 06/06/17 09:45 Est GFR ( Amer) 48 06/06/17 09:45 Est GFR (Non-Af Amer) 39 06/06/17 09:45 POC Glucose (mg/dL) 205 mg/dL (65-110) H 06/07/17 11:56 Random Glucose 104 mg/dL (75-110) 06/06/17 09:45 Calcium 8.9 mg/dl (8.6-10.4) 06/06/17 09:45 Phosphorus 3.4 mg/dL (2.5-4.5) 06/06/17 09:45 Magnesium 1.8 mg/dL (1.6-2.3) 06/06/17 09:45 Total Bilirubin 0.5 mg/dL (0.2-1.3) 06/05/17 20:37 AST 26 U/L (17-59) 06/05/17 20:37 ALT 38 U/L (21-72) 06/05/17 20:37 Alkaline Phosphatase 108 U/L (38-126) 06/05/17 20:37 Total Creatine Kinase 31 U/L (55-170) L 06/06/17 12:21 CK-MB (Mass) 0.80 ng/mL (0.0-3.38) 06/06/17 12:21 Troponin I, Quant 0.0880 ng/mL (0.00-0.120) 06/06/17 12:21 Total Protein 6.9 g/dL (6.3-8.3) 06/05/17 20:37 Albumin 3.4 g/dL (3.5-5.0) L 06/05/17 20:37 Globulin 3.5 gm/dL (2.2-3.9) 06/05/17 20:37 Albumin/Globulin Ratio 1.0 (1.0-2.1) 06/05/17 20:37 Triglycerides 125 mg/dL (0-149) D 06/06/17 09:45 Cholesterol 148 mg/dL (0-199) 06/06/17 09:45 LDL Cholesterol Direct 74 mg/dL (0-129) 06/06/17 09:45 HDL Cholesterol 56 mg/dL (30-70) 06/06/17 09:45 - Hospital Course Hospital Course: Pt was admitted to observation Had a nuclear stress test which was normal pt was started on bp mds and sent home seen by Digna Evans Discharge Exam - Head Exam Head Exam: NORMAL INSPECTION - ENT Exam ENT Exam: Mucous Membranes Moist - Respiratory Exam Respiratory Exam: NORMAL BREATHING PATTERN - Cardiovascular Exam Cardiovascular Exam: RRR - Extremities Exam Extremities exam: full ROM Discharge Plan - Follow Up Plan Disposition: HOME/ ROUTINE
[2017-06-07 23:59] VITALS: PULSE 82
[2017-06-08] MEDS ORDERED: Pneumococcal 23-Valent Vaccine IM ONE (10:00)
== END 2017-06-07 17:40 | disposition home or self-care (01) ==
LOC: C.ER 18:06 → C.5S 22:31
PROVIDERS: ADMIT Internal Medicine; ATTEND Internal Medicine
DX: R07.2 Precordial pain (principal); E11.22 Type 2 diabetes mellitus with diabetic chronic kidney disease; I12.9 Hypertensive chronic kidney disease with stage 1 through stage 4 chronic kidney disease, or unspecified chronic kidney disease; N18.9 Chronic kidney disease, unspecified
CPT/HCPCS: 36415; 71010; 78452; 80048; 80053; 80061; 82948; 83735; 84100; 84132; 84484; 85025; 93005; 93017; 93306; 96372; 97116; 97162; 99285; A9502; G0378; G8978; G8979; J1644; J1650

== ENCOUNTER 2018-03-13 23:08 | Emergency (ER) | payer MEDICARE, MEDICAID ==
[2018-03-13 23:09] VITALS: BMI 23.3
[2018-03-13 23:41] VITALS: RESP 20; O2SAT 99
[2018-03-13] MEDS ORDERED: Sodium Chloride 0.9% 1,000 ML IV ONE (23:48)
--- NOTE | 2018-03-13 23:48 | C.PDOC ---
History Of Present Illness Patient presents to the ER with a complaint of a diffuse, sharp, stabbing abdominal pain that radiates to the testicles that has worsened tonight. Patient reports he took 1 percocet today at 19:00 with no relief. Patient has a Hx of colon cancer with right colostomy. Denies fever, chills, nausea, or vomiting. Time Seen by Provider: 03/13/18 23:48 Chief Complaint (Nursing): Abdominal Pain History Per: Patient History/Exam Limitations: no limitations Onset/Duration Of Symptoms: Hrs Current Symptoms Are (Timing): Still Present Severity: Moderate Pain Scale Rating Of: 5 Location Of Pain/Discomfort: Diffuse Radiation Of Pain To:: Other (Testicles) Quality Of Discomfort: Sharp, Stabbing Associated Symptoms: denies: Fever, Chills, Nausea, Vomiting Exacerbating Factors: None Alleviating Factors: None Recent travel outside of the [place]: No Past Medical History Reviewed: Historical Data, Nursing Documentation, Vital Signs Vital Signs: Last Vital Signs Temp 97.5 F L 03/13/18 23:36 Pulse 52 L 03/13/18 23:36 Resp 20 03/13/18 23:36 BP 192/90 H 03/13/18 23:36 Pulse Ox 99 03/14/18 00:14 - Medical History PMH: Diabetes, HTN, Hypothyroidism, Kidney Stones, Pancreatitis, Chronic Kidney Disease Family History: States: No Known Family Hx - Social History Hx Tobacco Use: No Hx Alcohol Use: No Hx Substance Use: No - Immunization History Hx Tetanus Toxoid Vaccination: No Hx Influenza Vaccination: No Hx Pneumococcal Vaccination: No Review Of Systems Constitutional: Negative for: Fever, Chills Cardiovascular: Negative for: Chest Pain, Palpitations Respiratory: Negative for: Cough, Shortness of Breath Gastrointestinal: Positive for: Abdominal Pain. Negative for: Nausea, Vomiting Genitourinary: Positive for: Other (Testicular pain radiating from abdomen) Physical Exam - Physical Exam Appears: Non-toxic, Other (Mildly anxious) Skin: Warm, Dry Head: Normacephalic Oral Mucosa: Moist Chest: Symmetrical, No Tenderness Cardiovascular: Rhythm Regular Respiratory: No Rales, No Rhonchi, No Wheezing Gastrointestinal/Abdominal: Soft, Tenderness (Diffuse), No Guarding, No Rebound , Other (Right colostomy with good drainage, no surrounding erythema) Male Genital: Testicular Swelling Neurological/Psych: Oriented x3 ED Course And Treatment - Laboratory Results Result Diagrams: 03/13/18 23:54 03/13/18 23:54 O2 Sat by Pulse Oximetry: 99 (Room air) Pulse Ox Interpretation: Normal Progress Note: Blood work, EKG, and urinalysis ordered. Morphine, zofran, and IV fluids administered. Reevaluation Time: 03:22 Reassessment Condition: Improved Disposition Counseled Patient/Family Regarding: Studies Performed, Diagnosis, Need For Followup - Disposition Referrals: Ariane Mcginnis MD [Primary Care Provider] - Disposition: HOME/ ROUTINE Disposition Time: 23:48 Condition: FAIR Prescriptions: Tamsulosin [Flomax] 0.4 mg PO DAILY #15 cap traMADol [Ultram] 50 mg PO TID PRN #15 tab PRN Reason: Pain, Severe (8-10) Instructions: Renal Colic (DC), Kidney Stones (DC) Forms: [place] (Kyrgyz) Print Language: CITIZEN OF [place] - Clinical Impression Clinical Impression: Renal colic, Ureteric stone - Scribe Statement The provider has reviewed the documentation as recorded by the Scribrosa Harper All medical record entries made by the Vanibe were at my direction and personally dictated by me. I have reviewed the chart and agree that the record accurately reflects my personal performance of the history, physical exam, medical decision making, and the department course for this patient. I have also personally directed, reviewed, and agree with the discharge instructions and disposition.
[2018-03-13] MEDS ORDERED: Sodium Chloride 0.9% 1,000 ML ONE (23:57)
[2018-03-13 23:59] LABS: BASO # 0.1 K/uL (0.0-0.2); BASO % 0.7 % (0.0-2.0); EOS # 0.1 K/uL (0.0-0.7); EOS % 1.3 % (0.0-4.0); HEMOGLOBIN 11.6 g/dL (12.0-18.0); LYMPH # 3.3 K/uL (1.0-4.3); LYMPH % 35.2 % (20.0-40.0); MEAN CELL VOLUME 97.2 fL (80.0-94.0); MEAN PLATELET VOLUME 8.7 fL (7.2-11.7); MONO # 0.8 K/uL (0.0-0.8); MONO % 8.8 % (0.0-10.0); NEUT # 5.1 K/uL (1.8-7.0); RBC 3.5 Mil/uL (4.40-5.90); WHITE BLOOD COUNT 9.5 K/uL (4.8-10.8)
[2018-03-14 00:09] LABS: PROTHROMBIN TIME 10.8 SECONDS (9.7-12.2)
[2018-03-14 00:10] LABS: SQUAMOUS EPITHIAL 1 /hpf (0-5); URINE BACTERIA RARE (<OCC); URINE BILIRUBIN NEGATIVE (NEGATIVE); URINE BLOOD 3+ (NEGATIVE); URINE CLARITY Hazy (Clear); URINE COLOR Yellow (YELLOW); URINE GLUCOSE (UA) NORMAL (Normal); URINE LEUKOCYTE ESTERASE NEG Leu/uL (Negative); URINE PROTEIN 2+ mg/dL (NEGATIVE); URINE UROBILINOGEN NORMAL mg/dL (0.2-1.0)
[2018-03-14 00:16] LABS: ALBUMIN 3.5 g/dL (3.5-5.0); CALCIUM 8.7 mg/dl (8.6-10.4)
[2018-03-14] MEDS ORDERED: Morphine 4 MG/ML VIAL ONE (01:12)
[2018-03-14] MEDS ORDERED: Iodixanol 320 MG/ML 100 ML BOTTLE IV ONE (02:02)
[2018-03-14 03:28] VITALS: BP 154/82; PULSE 85; TEMP 98.2
--- NOTE | 2018-03-14 10:50 | CT ---
PROCEDURE: CT Abdomen and Pelvis with contrast HISTORY: colostomy, abdominal ,testicular pain COMPARISON: 10/25/2013. TECHNIQUE: CT scan of the abdomen and pelvis was performed after administration of intravenous contrast. Oral contrast was not administered. Coronal and sagittal reformatted images were obtained. Contrast dose: 100 mL Visipaque Radiation dose: Total exam DLP = 249.86 mGy-cm. This CT exam was performed using one or more of the following dose reduction techniques: Automated exposure control, adjustment of the mA and/or kV according to patient size, and/or use of iterative reconstruction technique. FINDINGS: LOWER THORAX: There is a borderline the right lung base. There is also minimal paraseptal emphysema. There is dependent atelectasis in the lung bases. LIVER: Normal in size with homogeneous enhancement. There is pneumobilia in the central and left biliary radicles likely sequela of prior surgically. GALLBLADDER AND BILE DUCTS: Surgically absent. PANCREAS: The head and proximal body of the pancreas are not visualized and may have been surgically resected. The distal body and tail of the pancreas are normal in size with homogeneous enhancement. No focal mass or ductal dilatation. SPLEEN: Normal in size and appearance. ADRENALS: The right adrenal gland is normal in size without discrete nodule. 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 KIDNEYS AND URETERS: The kidneys are normal in size. There are stable simple cysts in the right kidney. There is a 4 mm nonobstructing stone in the lower pole of the left kidney. There is a 4 mm obstructing stone in the left mid ureter as it crosses the iliac vessels with resultant mild diffuse dilatation of the proximal ureteral, mild left hydronephrosis and minimal perinephric fat stranding. VASCULATURE: Atherosclerotic aortoiliac calcifications. No aortic aneurysm. BOWEL: The small bowel loops are normal in caliber. No bowel dilatation. Status post total colectomy. Right lower quadrant ileostomy is again noted. PERITONEUM: No free fluid. No free air. LYMPH NODES: No enlarged lymph nodes. BLADDER: Grossly normal in appearance. REPRODUCTIVE: Mild enlargement of the prostate. BONES: No acute fracture. Multilevel degenerative changes. OTHER FINDINGS: None. IMPRESSION: 1. Mild left obstructive uropathy resulting from a 4 mm stone in the mid ureteral as it crosses the iliac vessels. 2. 4 mm nonobstructing stone in the lower pole of the left kidney. A preliminary report was provided by [employer].
== END 2018-03-14 03:34 | disposition home or self-care (01) ==
LOC: C.ER 23:08 → SUPCPDRO 23:08 → C.ER 03-14 03:34
DX: N20.1 Calculus of ureter (principal); N23 Unspecified renal colic; E03.9 Hypothyroidism, unspecified; I12.9 Hypertensive chronic kidney disease with stage 1 through stage 4 chronic kidney disease, or unspecified chronic kidney disease; N18.9 Chronic kidney disease, unspecified
CPT/HCPCS: 74177; 80053; 81001; 83690; 85025; 85610; 85730; 93005; 96374; 96376; 99285; J2270; J7030; Q9967

== ENCOUNTER 2018-09-04 06:10 | Day surgery (SDC) | payer MEDICARE, MEDICAID ==
[2018-09-04] MEDS ORDERED: Propofol 10 mg/ml Inj (20 ML) ONE (07:17)
[2018-09-04] MEDS ORDERED: Bupivacaine HCl 0.5% PF (30 ml) Inj ONE (07:25)
[2018-09-04] MEDS ORDERED: ceFAZolin 1 gm FROZEN Premix 1 GM/50 ML ML IVPB ONE (07:26)
[2018-09-04] MEDS ORDERED: Lidocaine Hydrochloride 10 ML INJ ONE (08:39)
[2018-09-04] MEDS ORDERED: Lidocaine Hydrochloride 5 ML INJ ONE (08:53)
--- NOTE | 2018-09-04 09:19 | PCM.SURG1 ---
Surgeon's Initial Post Op Note - Surgeon's Notes Surgeon: shaquille Warp Tension Tester: none Type of Anesthesia: General LMA Pre-Operative Diagnosis: left carpal tunnel Operative Findings: see dictation Post-Operative Diagnosis: same Operation Performed: endoscopic carpal tunnel Specimen/Specimens Removed: none Estimated Blood Loss: EBL {In ML}: 0 Date of Surgery/Procedure: 09/04/18 Time of Surgery/Procedure: 08:30
[2018-09-04] MEDS ORDERED: HYDROmorphone 0.5 mg/0.5 ml ISec IVP PRN (09:20)
[2018-09-04 10:21] VITALS: RESP 18; O2SAT 97
[2018-09-04 11:36] VITALS: BP 142/71; PULSE 67; TEMP 97.5
--- NOTE | 2018-09-04 19:59 | OP ---
PROCEDURE DATE: 09/04/2018 PREOPERATIVE DIAGNOSIS: Left carpal tunnel syndrome. POSTOPERATIVE DIAGNOSIS: Left carpal tunnel syndrome. PROCEDURE: Endoscopic carpal tunnel release surgery - [id number]. [employer]: None. ANESTHESIA: local and IV sedation. ESTIMATED BLOOD LOSS: 0 mL. DISPOSITION: Stable to recovery room. OPERATIVE FINDINGS: Severe compression of the median nerve within the carpal tunnel. INDICATION: Severe carpal tunnel syndrome which has failed conservative therapy. Patient is indicated for the above procedure. Risks and benefits were explained. Risks include but not limited to bleeding, infection, tendon, nerve, vessel injury, instability, chronic pain, potential need for additional surgery in the future, numbness. Patient understood the above risks and elected to proceed. Informed consent was obtained. DESCRIPTION OF PROCEDURE: Patient was brought to the operating room and placed supine on the operating room table. After adequate anesthesia was given and prophylactic antibiotics, a well-padded nonsterile tourniquet was placed on the patient's left upper extremity. The entire extremity was then prepped and draped in standard surgical fashion. A time-out was performed. With a sterile marking pen, a 2-cm transverse incision was outlined over the distal wrist flexion centered over the third web space. The arm was then elevated and exsanguinated with an Esmarch bandage. The tourniquet was inflated to 250 mmHg and Esmarch was removed. Skin incision was made and superficial veins were cauterized. Blunt dissection was carried down. Palmaris longus tendon was identified and retracted. The deep fascia was then identified and incised opening the entrance to the carpal canal. The median nerve was identified and protected throughout the whole procedure. Sequential dilators were placed into the carpal canal followed by an arthroscopic scalpel. The transverse carpal ligament was identified in its entirety. Under direct arthroscopic visualization the hook blade was deployed at the distal edge of the transverse carpal ligament incising it in is entirety to the proximal edge of the ligament. The transverse carpal ligament was fully incised and the carpal canal decompressed. The arthroscopic instrument was then removed. Next the proximal fascia over the median nerve was identified, and incised with tenotomy scissors to further decompress the median nerve. All sites of compression of the median nerve at the wrist were released. The wound was then copiously irrigated. Tourniquet was deflated. Hemostasis was obtained with bipolar cautery. Followed by skin closure with 4-0 Monocryl subcuticular closure. Sterile dressing was applied, consisting of Steri-Strips, 4 x 4's and Rich. Patient tolerated the procedure well and returned to recovery room awake alert and in excellent condition. Rigoberto Lowe MD
== END 2018-09-04 10:58 | disposition home or self-care (01) ==
LOC: C.SDS 06:10
PROVIDERS: ATTEND Orthopaedic Surgery
DX: G56.02 Carpal tunnel syndrome, left upper limb (principal)
CPT/HCPCS: 29848; 82948; J2405; J2704; J3010

== ENCOUNTER 2018-09-21 10:48 | Outpatient (CLI) | payer MEDICARE, MEDICAID | END 2018-09-21 10:49 | disposition home or self-care (01) | LOC: C.LAB 10:48 | DX: R31.21 Asymptomatic microscopic hematuria (principal); R63.4 Abnormal weight loss; N18.3 Chronic kidney disease, stage 3 (moderate) ==

== ENCOUNTER → 2018-11-30 | Outpatient (CLI) | payer MEDICARE, MEDICAID | LOC: C.LAB 10:49 | DX: E87.6 Hypokalemia (principal); N18.3 Chronic kidney disease, stage 3 (moderate) ==

== ENCOUNTER 2018-12-18 09:06 | Outpatient (CLI) | payer MEDICARE, MEDICAID | END 2018-12-18 09:07 | disposition home or self-care (01) | LOC: C.LAB 09:06 | DX: E87.6 Hypokalemia (principal) ==

== ENCOUNTER 2019-01-03 10:31 | Outpatient (CLI) | payer MEDICARE, MEDICAID | END 2019-01-03 10:32 | disposition home or self-care (01) | LOC: C.LAB 10:31 ==

== ENCOUNTER 2019-01-07 07:53 | Outpatient (CLI) | payer MEDICARE, MEDICAID | END 2019-01-07 07:54 | disposition home or self-care (01) | LOC: C.LAB 07:53 | DX: R80.9 Proteinuria, unspecified (principal) ==